=== PATIENT | male | born 1945 | race Hispanic/Latino ===

== ENCOUNTER → 2018-02-08 | Outpatient (CLI) | payer MEDICARE | END | disposition home or self-care (01) | LOC: RAH 09:55 | PROVIDERS: ATTEND Family Medicine | DX: N28.1 Cyst of kidney, acquired (principal) | CPT/HCPCS: 76700 ==

== ENCOUNTER → 2019-01-17 | Outpatient (CLI) | payer MEDICARE ==
[~2019-01-17] MED LIST: BACL20TA PO; FINA5TAB41 PO; FIORIT PO; GABA600T10 PO; LEVO500T2 PO; LINA145C PO; METR-172 PO; OMEG100014 PO; PANT40TA25 PO; ROSU10TA22 PO; SUCR1TAB28 PO; TAMS0.4C32 PO
== END | disposition home or self-care (01) ==
LOC: RAH 08:39
PROVIDERS: ATTEND Internal Medicine Gastroenterology
DX: R10.84 Generalized abdominal pain (principal); R13.10 Dysphagia, unspecified
CPT/HCPCS: 74240; 76700

== ENCOUNTER 2019-02-02 02:32 | Emergency (ER) | payer MEDICARE | END 2019-02-02 03:03 | disposition home or self-care (01) | LOC: EDH 02:32 | DX: R60.0 Localized edema (principal); E78.5 Hyperlipidemia, unspecified | CPT/HCPCS: 99281 ==

== ENCOUNTER 2019-04-28 02:19 | Emergency (ER) | payer MEDICARE ==
[2019-04-28] MEDS ORDERED: KETOROLAC TROMETHAMINE 30MG/ML ONE (04:13)
[2019-04-28] MEDS ORDERED: LIDOCAINE 5% TOPICAL PATCH TP ONE (04:31)
== END 2019-04-28 05:10 | disposition home or self-care (01) ==
LOC: EDH 02:19
DX: G44.209 Tension-type headache, unspecified, not intractable (principal); M62.838 Other muscle spasm; E78.5 Hyperlipidemia, unspecified; G89.29 Other chronic pain; Z98.890 Other specified postprocedural states
CPT/HCPCS: 96372; 99283; J1885

== ENCOUNTER → 2019-05-08 | Outpatient (CLI) | payer MEDICARE | END | disposition home or self-care (01) | LOC: RAH 08:34 | PROVIDERS: ATTEND Otolaryngology | DX: K21.9 Gastro-esophageal reflux disease without esophagitis (principal); R13.10 Dysphagia, unspecified; R63.3 Feeding difficulties; K22.4 Dyskinesia of esophagus | CPT/HCPCS: 74220 ==

== ENCOUNTER 2019-08-01 08:56 | Emergency (ER) | payer MEDICARE ==
[2019-08-01 09:15] LABS: BASOPHILS % (AUTO) 0.7 % (0.0-5.0); EOSINOPHILS % (AUTO) 2.3 % (0.0-8.0); LYMPHOCYTES % (AUTO) 28.3 % (21.0-51.0); MEAN CORPUSCULAR HEMOGLOBIN 30.3 pg (27.0-33.0); MEAN CORPUSCULAR HGB CONC 34.6 g/dL (32.0-36.0); MEAN CORPUSCULAR VOLUME 87.6 fL (79-99); MONOCYTES % (AUTO) 9.3 % (3.0-13.0); PLATELET COUNT (AUTO) 243 K/uL (130-400); RED BLOOD CELL COUNT(AUTO) 4.68 MIL/uL (4.50-6.20); WHITE BLOOD COUNT (AUTO) 10.1 K/uL (4.8-10.8)
[2019-08-01 09:19] LABS: APPEARANCE,URINE Clear (CLEAR); BILIRUBIN,URINE Negative (NEGATIVE); COLOR,URINE Yellow (YELLOW); GLUCOSE, URINE (UA) Negative (NEGATIVE); KETONES,URINE Negative (NEGATIVE); LEUKOCYTE ESTERASE ,URINE Negative (NEGATIVE); NITRATE,URINE Negative (NEGATIVE); OCCULT BLOOD,URINE Negative (NEGATIVE); PH,URINE 6.5 (5.0-8.0); PROTEIN,URINE Negative (NEGATIVE); UROBILINOGEN,URINE 0.2 mg/dL (0.2-1.0)
[2019-08-01 09:29] LABS: POTASSIUM 3.4 mmol/L (3.5-5.1)
[2019-08-01 09:34] LABS: BILIRUBIN,TOTAL 0.5 mg/dL (0.2-1.0); TOTAL PROTEIN, SERUM 7.6 g/dL (6.0-8.3)
[2019-08-01] MEDS ORDERED: KETOROLAC TROMETHAMINE 15MG/ML ONE (09:43)
[2019-08-01] MEDS ORDERED: LEVOFLOXACIN 500 MG/D5W 100 ML 100 ML ONE (09:56)
[2019-08-01] MEDS ORDERED: METRONIDAZOLE 500MG/100ML BAG 100 ML ONE (09:56)
== END 2019-08-01 11:27 | disposition home or self-care (01) ==
LOC: EDH 08:56
DX: K57.30 Diverticulosis of large intestine without perforation or abscess without bleeding (principal); G89.29 Other chronic pain; E78.5 Hyperlipidemia, unspecified; Z87.891 Personal history of nicotine dependence
CPT/HCPCS: 36415; 74176; 80053; 81003; 83605; 83690; 85025; 96365; 96367; 96375; 99284; J1885; J1956; J3490

== ENCOUNTER 2019-08-14 04:54 | Emergency (ER) | payer MEDICARE ==
[~2019-08-14 04:54] MED LIST changes: -PANT40TA25 PO; +PANT40TA54 PO
[2019-08-14] MEDS ORDERED: KETOROLAC TROMETHAMINE 60 MG/2 ML VIAL ONE (07:05)
[2019-08-14] MEDS ORDERED: ONDANSETRON ODT 4 MG TAB ONE (07:10)
== END 2019-08-14 07:13 | disposition home or self-care (01) ==
LOC: EDH 04:54
DX: R51 Headache (principal); G89.29 Other chronic pain; M54.2 Cervicalgia; E78.5 Hyperlipidemia, unspecified; R05 Cough; Z98.890 Other specified postprocedural states
CPT/HCPCS: 70450; 72125; 96372; 99285; J1885

== ENCOUNTER → 2020-02-14 | Outpatient (CLI) | payer MEDICARE | END | disposition home or self-care (01) | LOC: RAH 13:11 | PROVIDERS: ATTEND Family Medicine | DX: S83.281A Other tear of lateral meniscus, current injury, right knee, initial encounter (principal); N64.4 Mastodynia; M25.561 Pain in right knee; X58.XXXA Exposure to other specified factors, initial encounter; Y93.89 Activity, other specified; Y92.89 Other specified places as the place of occurrence of the external cause; Y99.8 Other external cause status; M17.11 Unilateral primary osteoarthritis, right knee | CPT/HCPCS: 73721; 76641 ==

== ENCOUNTER → 2020-08-05 | Outpatient (CLI) | payer MEDICARE | END | disposition home or self-care (01) | LOC: RAH 10:19 | PROVIDERS: ATTEND Family Medicine | DX: K21.00 Gastro-esophageal reflux disease with esophagitis, without bleeding (principal) | CPT/HCPCS: 74220 ==

== ENCOUNTER → 2023-11-23 | Outpatient (CLI) | payer OTHER, MEDICARE | END | disposition home or self-care (01) | LOC: RAH 09:34 | PROVIDERS: ATTEND Family Medicine | DX: K21.9 Gastro-esophageal reflux disease without esophagitis (principal); R05.3 Chronic cough; R13.10 Dysphagia, unspecified | CPT/HCPCS: 74220 ==